=== PATIENT | female | born 1990 | race Two or more races ===

== ENCOUNTER 2024-01-28 07:44 | Inpatient (IN) | payer MEDICAID, OTHER ==
[~2024-01-28] VITALS: Ht 160 cm; Wt 92.7 kg
[2024-01-28 08:18] LABS: Urine Bacteria None Seen /hpf (None Seen)
[2024-01-28 08:30] LABS: Urine Blood Negative /uL (Negative); Urine Clarity Turbid (Clear); Urine Color Light-Orange (Yellow); Urine Mucus FEW (None Seen); Urine Protein, UAD TRACE (Negative); Urine Specific Gravity 1.018 (1.001-1.035); Urine Urobilinogen Normal (Negative); Urine WBC 10 /hpf (0 - 5)
[2024-01-28 09:12] LABS: Chloride 108 mmol/L (98-107); Potassium 3.9 mmol/L (3.5-5.1); Sodium 138 mmol/L (136-145)
[2024-01-28 09:13] LABS: Anion Gap 6 (5-15); Carbon Dioxide 24 mmol/L (20-31)
[2024-01-28 09:14] LABS: Calcium 9.3 mg/dL (8.7-10.4)
[2024-01-28 09:18] LABS: Glucose 90 mg/dL (74-106)
[2024-01-28 09:20] LABS: Basophils # (auto) 0 10 ^3/uL (0-0.2); Basophils % (auto) 0.1 % (0.0-2.0); Eosinophils # (auto) 0 10 ^3/uL (0-0.8); Eosinophils % (auto) 0.4 % (0.0-7.0); Hematocrit 40.3 % (36.0-46.0); Lymphocytes # (auto) 2.3 10 ^3/uL (0.4-5.4); Lymphocytes % (auto) 23.1 % (10.0-50.0); Mean Corpuscular Hemoglobin 30.4 pg (28.0-32.0); Mean Corpuscular Hgb Conc. 34.6 g/dL (32.0-36.0); Mean Corpuscular Volume 87.6 fL (80.0-100.0); Monocytes # (auto) 0.5 10 ^3/uL (0-1.3); Monocytes % (auto) 5.5 % (0.0-12.0); Neutrophils % (auto) 70.9 % (37.0-80.0); Nucleated Red Blood Cells % 0.1 %; Platelet Count (auto) 264 10^3/uL (140-450); Red Cell Distribution Width 13.8 % (11.8-14.3); White Blood Cell 9.9 10^3/uL (4.4-10.8)
[2024-01-28 09:29] LABS: BUN/Creatinine Ratio 9.4 (10.0-20.0); Blood Urea Nitrogen < 5 mg/dL (9-23)
[2024-01-28] MEDS ORDERED: cefTRIAXone 1GM/50ML D5W 50 ML IV ONE (09:44)
[2024-01-28] MEDS: SODIUM CHLORIDE 0.9% 1,000 ML IV ONE (09:45)
[2024-01-28] MEDS: cefTRIAXone 1GM/50ML D5W 50 ML IV ONE (09:46)
[2024-01-28 10:05] VITALS: PULSE 78; RESP 16; O2SAT 98
[2024-01-28] MEDS: HYDROcodone-ACET 5/325MG TAB ONE (10:35)
[2024-01-28] MEDS: HYDROcodone-ACET 5/325MG TAB PO ONE (10:35)
[2024-01-28] MEDS ORDERED: ONDANSETRON HCL 4 MG/2 ML VIAL IV PRN (11:15)
[2024-01-28] MEDS ORDERED: MORPHINE SULFATE INJ 2 MG/ml SYRG IV PRN (11:15)
[2024-01-28] MEDS ORDERED: HYDROcodone-ACET 5/325MG TAB PO PRN (11:15)
[2024-01-28] MEDS: PANTOPRAZOLE 40 MG TAB PO SCH (12:26)
[2024-01-28] MEDS ORDERED: ACETAMINOPHEN 325 MG TAB PO PRN (13:45)
[2024-01-28 19:35] VITALS: PULSE 79; RESP 17; O2SAT 98
[2024-01-29 07:48] LABS: Basophils # (auto) 0 10 ^3/uL (0-0.2); Basophils % (auto) 0.2 % (0.0-2.0); Eosinophils # (auto) 0.1 10 ^3/uL (0-0.8); Eosinophils % (auto) 0.7 % (0.0-7.0); Hematocrit 36.9 % (36.0-46.0); Hemoglobin 12.7 g/dL (12.2-16.2); Lymphocytes # (auto) 2.5 10 ^3/uL (0.4-5.4); Lymphocytes % (auto) 27.2 % (10.0-50.0); Mean Corpuscular Hemoglobin 30.4 pg (28.0-32.0); Mean Corpuscular Hgb Conc. 34.3 g/dL (32.0-36.0); Mean Corpuscular Volume 88.6 fL (80.0-100.0); Monocytes # (auto) 0.6 10 ^3/uL (0-1.3); Monocytes % (auto) 6.3 % (0.0-12.0); Neutrophils # (auto) 5.9 10 ^3/uL (1.6-8.6); Neutrophils % (auto) 65.6 % (37.0-80.0); Nucleated Red Blood Cells % 0.1 %; Platelet Count (auto) 246 10^3/uL (140-450); Red Blood Cells 4.17 10^6/uL (4.0-5.20); Red Cell Distribution Width 13.9 % (11.8-14.3)
[2024-01-29 08:00] VITALS: PULSE 86; RESP 16; O2SAT 95
[2024-01-29 08:04] LABS: Alanine Aminotransferase 23 U/L (7-40); Albumin 3.5 g/dL (3.2-4.8); Alkaline Phosphatase 42 U/L (46-116); Anion Gap 7 (5-15); Aspartate Aminotransferase 15 U/L (13-40); Calcium 8.9 mg/dL (8.7-10.4); Carbon Dioxide 23 mmol/L (20-31); Chloride 106 mmol/L (98-107); Glucose 86 mg/dL (74-106); Potassium 3.8 mmol/L (3.5-5.1); Sodium 136 mmol/L (136-145)
[2024-01-29 08:05] LABS: Bilirubin, Total 0.5 mg/dL (0.2-1.0); Total Protein 5.9 g/dL (5.7-8.2)
[2024-01-29 08:13] LABS: Blood Urea Nitrogen < 5 mg/dL (9-23)
[2024-01-29 11:50] VITALS: PULSE 80; RESP 18; O2SAT 98
[2024-01-29] MEDS: cefTRIAXone 1GM/50ML D5W 50 ML IV SCH (11:57)
[2024-01-29 13:00] VITALS: BP 127/66; PULSE 82; RESP 18; TEMP 98.6; O2SAT 98
== END 2024-01-29 15:00 | disposition left against medical advice (07) | DRG 566 ==
LOC: ER 07:44 → OVERFLOW 11:05 → UNDOADMIN 11:05 → OVERFLOW 13:35 → EAST 13:37
PROVIDERS: ADMIT Registered Nurse General Practice; ATTEND Registered Nurse General Practice
DX: O23.32 Infections of other parts of urinary tract in pregnancy, second trimester (principal); Z3A.21 21 weeks gestation of pregnancy; Z53.29 Procedure and treatment not carried out because of patient's decision for other reasons; N39.0 Urinary tract infection, site not specified
CPT/HCPCS: 36415; 76805; 80048; 80053; 81001; 81025; 84702; 85025; 87086; 99291; G0378